=== PATIENT | male | born 1995 | race Caucasian/White ===

== ENCOUNTER 2018-05-17 11:25 | Outpatient (RCR) | payer OTHER | END 2018-05-21 | disposition home or self-care (01) | LOC: WCC 11:25 | DX: L98.492 Non-pressure chronic ulcer of skin of other sites with fat layer exposed (principal); T81.31XS Disruption of external operation (surgical) wound, not elsewhere classified, sequela; L05.91 Pilonidal cyst without abscess; X58.XXXS Exposure to other specified factors, sequela | CPT/HCPCS: 11042; G0463 ==

== ENCOUNTER 2018-06-02 14:43 | Outpatient (RCR) | payer OTHER | END 2018-06-20 | disposition home or self-care (01) | LOC: WCC 14:43 | DX: L98.492 Non-pressure chronic ulcer of skin of other sites with fat layer exposed (principal); T81.31XS Disruption of external operation (surgical) wound, not elsewhere classified, sequela; L05.91 Pilonidal cyst without abscess; X58.XXXS Exposure to other specified factors, sequela | CPT/HCPCS: 11042; 17250 ==

== ENCOUNTER 2018-06-21 09:45 | Outpatient (RCR) | payer OTHER ==
[~2018-06-21] VITALS: Ht 180.3 cm; Wt 75.7 kg
[2018-06-22] MEDS ORDERED: Silver Nitrate Stick TOPIC ONE (13:15)
[2018-07-01] MEDS ORDERED: Silver Nitrate Stick TOPIC ONE (10:00)
== END 2018-07-21 | disposition home or self-care (01) ==
LOC: WCC 09:45
DX: L98.492 Non-pressure chronic ulcer of skin of other sites with fat layer exposed (principal); T81.31XS Disruption of external operation (surgical) wound, not elsewhere classified, sequela; L05.91 Pilonidal cyst without abscess
CPT/HCPCS: 11042

== ENCOUNTER 2018-07-26 09:25 | Outpatient (RCR) | payer OTHER | END 2018-08-20 | disposition home or self-care (01) | LOC: WCC 09:25 | DX: L98.492 Non-pressure chronic ulcer of skin of other sites with fat layer exposed (principal); T81.31XS Disruption of external operation (surgical) wound, not elsewhere classified, sequela; L05.91 Pilonidal cyst without abscess | CPT/HCPCS: 11042 ==

== ENCOUNTER 2018-08-30 10:06 | Outpatient (RCR) | payer OTHER | END 2018-09-20 | disposition home or self-care (01) | LOC: WCC 10:06 | DX: L98.492 Non-pressure chronic ulcer of skin of other sites with fat layer exposed (principal); T81.31XS Disruption of external operation (surgical) wound, not elsewhere classified, sequela; L05.91 Pilonidal cyst without abscess ==